=== PATIENT | male | born 1965 | race African-American/Black ===

== ENCOUNTER 2021-06-01 08:15 | Emergency (ER) | payer BC ==
[~2021-06-01] VITALS: Ht 172.7 cm; Wt 103.9 kg
[2021-06-01 08:24] VITALS: BP 158/94
[2021-06-01 10:20] LABS: ABSOLUTE NEUTROPHILS 2.7 thou/uL (1.4-8.2); BASOPHILS 1.3 % (0.0-2.0); EOSINOPHILS 1.3 % (0.0-3.0); HEMATOCRIT 47.5 % (42.0-52.0); HEMOGLOBIN 15.6 gm/dL (14.0-18.0); LYMPHOCYTES 44.6 % (24.0-44.0); MCH 30.6 pg (26.0-34.0); MCHC 32.8 g/dL (28.0-37.0); MCV 93.2 fL (80.0-100.0); MONOCYTES 4.6 % (1.0-8.0); PLATELET COUNT 273 thou/uL (150-400); POLYS 48.2 % (36.0-66.0); RBC 5.09 mil/uL (4.50-6.00); RDW 14.8 % (10.5-14.5); WBC 5.6 thou/uL (4.0-11.0)
[2021-06-01 10:43] LABS: CALCIUM 9.1 mg/dL (8.5-10.1); CREATININE 1.5 mg/dL (0.7-1.3); POTASSIUM 4.5 mmol/L (3.5-5.1)
== END 2021-06-01 11:22 | disposition home or self-care (01) ==
LOC: ER 08:15
PROVIDERS: Student in an Organized Health Care Education/Training Program
DX: U07.1 COVID-19 (principal); J44.9 Chronic obstructive pulmonary disease, unspecified; E78.5 Hyperlipidemia, unspecified; F14.90 Cocaine use, unspecified, uncomplicated

== ENCOUNTER 2021-06-07 09:10 | Emergency (ER) | payer BC ==
[~2021-06-07] VITALS: Ht 172.7 cm; Wt 103.9 kg
[2021-06-07] MEDS ORDERED: FLEXERIL PO (10:17)
[2021-06-07 10:34] VITALS: BP 144/79
== END 2021-06-07 10:34 | disposition home or self-care (01) ==
LOC: ER 09:10
DX: M54.2 Cervicalgia (principal); J44.9 Chronic obstructive pulmonary disease, unspecified; E78.5 Hyperlipidemia, unspecified; Z86.16 Personal history of COVID-19; V43.63XA Car passenger injured in collision with pick-up truck in traffic accident, initial encounter; Y93.89 Activity, other specified; Y92.89 Other specified places as the place of occurrence of the external cause; Y99.8 Other external cause status